=== PATIENT | female | born 1985 | race Hispanic/Latino ===

== ENCOUNTER 2016-12-16 05:58 | Emergency (ER) | payer OTHER ==
[2016-12-16] MEDS ORDERED: Dexamethasone 4 mg/ml Vial ONE ×2 (06:14→06:15)
== END 2016-12-16 06:30 | disposition home or self-care (01) ==
LOC: BURERS 05:58
DX: J02.9 Acute pharyngitis, unspecified (principal); F32.9 Major depressive disorder, single episode, unspecified; F17.210 Nicotine dependence, cigarettes, uncomplicated
CPT/HCPCS: 99283; J1100

== ENCOUNTER 2016-12-17 18:54 | Emergency (ER) | payer OTHER ==
[2016-12-17] MEDS ORDERED: Benzonatate 100 MG CAP ONE (19:16)
[2016-12-17] MEDS ORDERED: Azithromycin 250 MG TAB ONE (19:57)
--- NOTE | 2016-12-17 20:33 | RAD ---
CHEST TWO VIEWS 12/17/16 The films were taken in partial expiration. This causes some crowding of the basilar markings and th sera areas are not seen as well as otherwise. Nevertheless, three were no convincing findings of pneu monia. No pleural effusions were seen. The heart size is normal given body habitus and an expiratory phase of filming. The trachea is midline. IMPRESSION: No acute thoracic finding. POS: HOME
== END 2016-12-17 20:01 | disposition home or self-care (01) ==
LOC: BURERS 18:54
DX: J20.9 Acute bronchitis, unspecified (principal); F32.9 Major depressive disorder, single episode, unspecified; F17.210 Nicotine dependence, cigarettes, uncomplicated; D64.9 Anemia, unspecified
CPT/HCPCS: 71020; 87081; 87430; 99283

== ENCOUNTER 2017-03-11 07:50 | Emergency (ER) | payer OTHER ==
[2017-03-11] MEDS ORDERED: HYDROcodone/Acetaminophen 5/325 mg Tablet ONE (08:08)
== END 2017-03-11 08:22 | disposition home or self-care (01) ==
LOC: BURERS 07:50
DX: H66.92 Otitis media, unspecified, left ear (principal); J02.9 Acute pharyngitis, unspecified; F32.9 Major depressive disorder, single episode, unspecified; F17.210 Nicotine dependence, cigarettes, uncomplicated
CPT/HCPCS: 99282

== ENCOUNTER 2017-09-24 19:05 | Emergency (ER) | payer OTHER ==
[2017-09-24 20:09] LABS: ALT (SGPT) 27 U/L (8-55); AST (SGOT) 19 U/L (5-34); Albumin 4.1 g/dL (3.5-5.0); Alkaline Phosphatase 84 U/L (40-150); Anion Gap 13 mmol/L (10-20); BUN (Urea Nitrogen) 11 mg/dL (7.0-18.7); Bilirubin, Total Less than 0.2 mg/dL (0.2-1.2); Calc. Creatinine Clearance 0 mL/min (70-130); Calcium 9.1 mg/dL (7.8-10.44); Carbon Dioxide 22 mmol/L (22-29); Chloride 108 mmol/L (98-107); Estimated GFR-MDRD Greater than 90; Globulin 3.4 g/dL (2.4-3.5); Glucose 101 mg/dL (70-105); Potassium 3.8 mmol/L (3.5-5.1); Protein, Total 7.5 g/dL (6.0-8.3); Sodium 139 mmol/L (136-145)
[2017-09-24 20:13] LABS: #Basophils 0.1 thou/uL (0.0-0.2); #Eosinphils 0.3 thou/uL (0.0-0.7); #Lymphocytes 2.8 thou/uL (1.20-3.40); #Monocytes 0.7 thou/uL (0.11-0.59); #Neutrophils 8.7 thou/uL (1.40-6.50); %Basophils 0.6 % (0.0-1.0); %Eosinophils 2.7 % (0.0-10.0); %Lymphocytes 22.4 % (21.0-51.0); %Monocytes 5.8 % (0.0-10.0); %Neutrophils 68.6 % (42.0-75.0); Hemoglobin 10.8 g/dL (12.0-16.0); Hypochromia SLIGHT = 6-15 cells (100X) (0-5/hpf); Large Platelets SLIGHT; MDiff Complete? YES; Mean Corpuscular HGB CONC 31.7 g/dL (32.0-36.0); Mean Corpuscular Volume 75.9 fl (81.0-99.0); Mean Platelet Volume 6.5 fL (7.4-10.4); Microcytosis SLIGHT = 6-15 cells (100X) (0-5/hpf); Platelet Count 373 thou/uL (130-400); RBC Distribution Width 15.6 % (11.5-14.5); Red Blood Cell (RBC) Count 4.48 mill/uL (4.20-5.40); White Blood Cell (WBC) Count 12.7 thou/uL (4.8-10.8)
[2017-09-24] MEDS ORDERED: traMADol HCl 50 MG TAB ONE (20:47)
[2017-09-24] MEDS ORDERED: Ibuprofen 800 MG TAB ONE (20:47)
--- NOTE | 2017-09-25 07:02 | RAD ---
CHEST 2 VIEWS: Date: 09/24/17 Comparison is made with the 12/17/16 study. FINDINGS: The heart size is stable and is normal. There is no vascular congestion, edema, or pleural effusion. No lobar consolidation is seen. At most, there was a little streaking near the right cardiophrenic an gle, but much of this is due to vessels and overlapping soft tissues. I do not see a substantial infi ltrate here on the lateral view. IMPRESSION: No definite acute findings. POS: HOME
== END 2017-09-24 20:50 | disposition home or self-care (01) ==
LOC: BURERS 19:05
DX: D50.9 Iron deficiency anemia, unspecified (principal); F32.9 Major depressive disorder, single episode, unspecified; F17.210 Nicotine dependence, cigarettes, uncomplicated; Z79.899 Other long term (current) drug therapy
CPT/HCPCS: 71046; 80053; 85025; 85379

== ENCOUNTER 2018-06-17 18:18 | Emergency (ER) | payer MEDICARE ==
[2018-06-17 19:18] LABS: BHCG - Serum Negative (NEGATIVE); Pregs Control Background? CLEAR/WHITE (CLR/WHITE); Pregs Control Bar Appear? YES (CONTROL BAR)
[2018-06-17 19:27] LABS: #Basophils 0.1 thou/uL (0.0-0.2); #Eosinphils 0.2 thou/uL (0.0-0.7); #Lymphocytes 3.3 thou/uL (1.20-3.40); #Monocytes 0.5 thou/uL (0.11-0.59); #Neutrophils 6.8 thou/uL (1.40-6.50); %Basophils 0.8 % (0.0-1.0); %Lymphocytes 30.1 % (21.0-51.0); %Monocytes 4.8 % (0.0-10.0); %Neutrophils 62.3 % (42.0-75.0); Hemoglobin 11.3 g/dL (12.0-16.0); MDiff Complete? YES; Mean Corpuscular HGB CONC 32.1 g/dL (32.0-36.0); Mean Corpuscular Hemoglobin 24.7 pg (27.0-31.0); Mean Corpuscular Volume 76.9 fL (78.0-98.0); Microcytosis SLIGHT = 6-15 cells (100X) (0-5/hpf); Platelet Count 395 thou/uL (130-400); RBC Distribution Width 14.6 % (11.5-14.5); Red Blood Cell (RBC) Count 4.59 mill/uL (4.20-5.40); White Blood Cell (WBC) Count 10.9 thou/uL (4.8-10.8)
== END 2018-06-17 20:10 | disposition home or self-care (01) ==
LOC: BURERS 18:18
DX: N93.8 Other specified abnormal uterine and vaginal bleeding (principal); D64.9 Anemia, unspecified; F32.9 Major depressive disorder, single episode, unspecified; F17.210 Nicotine dependence, cigarettes, uncomplicated
CPT/HCPCS: 84703; 85025; 99284

== ENCOUNTER 2018-11-08 21:02 | Emergency (ER) | payer MEDICARE ==
[2018-11-08 22:25] LABS: BHCG - Serum Negative (NEGATIVE); Pregs Control Background? CLEAR/WHITE (CLR/WHITE); Pregs Control Bar Appear? YES (CONTROL BAR)
== END 2018-11-08 22:40 | disposition home or self-care (01) ==
LOC: BURERS 21:02
DX: N93.8 Other specified abnormal uterine and vaginal bleeding (principal); F32.9 Major depressive disorder, single episode, unspecified; D64.9 Anemia, unspecified; F17.210 Nicotine dependence, cigarettes, uncomplicated
CPT/HCPCS: 36415; 84702; 84703; 99284

== ENCOUNTER 2019-09-16 13:54 | Outpatient (CLI) | payer MEDICARE ==
--- NOTE | 2019-09-16 14:11 | RAD ---
XR Chest Pa Lat STANDARD HISTORY: Pneumonia due to infectious organism, unspecified COMPARISON: 09/24/2017 FINDINGS: The heart size is normal. The lungs are well expanded without focal areas of consolidation, pneumothorax or pleural effusions. IMPRESSION: No radiographic evidence of acute cardiopulmonary process.
[2019-09-16 21:13] LABS: #Eosinphils 0.1 thou/uL (0.0-0.7); #Lymphocytes 1.7 thou/uL (1.20-3.40); #Monocytes 0.9 thou/uL (0.11-0.59); #Neutrophils 3.8 thou/uL (1.40-6.50); %Basophils 0.1 % (0.0-1.0); %Eosinophils 1.1 % (0.0-10.0); %Lymphocytes 25.7 % (21.0-51.0); %Monocytes 14.6 % (0.0-10.0); %Neutrophils 58.5 % (42.0-75.0); Hemoglobin 12.6 g/dL (12.0-16.0); Mean Corpuscular HGB CONC 34.1 g/dL (32.0-36.0); Mean Corpuscular Hemoglobin 30.4 pg (27.0-31.0); Mean Corpuscular Volume 89.2 fL (78.0-98.0); Mean Platelet Volume 8.7 fL (7.4-10.4); Platelet Count 275 thou/uL (130-400); RBC Distribution Width 13.3 % (11.5-14.5); Red Blood Cell (RBC) Count 4.16 mill/uL (4.20-5.40); White Blood Cell (WBC) Count 6.5 thou/uL (4.8-10.8)
== END 2019-09-16 13:55 | disposition home or self-care (01) ==
LOC: BURRAD 13:54
PROVIDERS: ATTEND Physician Assistant
DX: J01.40 Acute pansinusitis, unspecified (principal)
CPT/HCPCS: 71046; 85025

== ENCOUNTER 2020-10-14 10:54 | Emergency (ER) | payer MEDICARE ==
[2020-10-14] MEDS ORDERED: diphenhydrAMINE 25 MG CAP ONE (11:32)
[2020-10-14] MEDS ORDERED: methylPREDNISolone Sod Succ/PF 125 MG/2 ML VIAL ONE (11:32)
== END 2020-10-14 11:45 | disposition home or self-care (01) ==
LOC: BURERS 10:54
DX: T78.1XXA Other adverse food reactions, not elsewhere classified, initial encounter (principal); R10.9 Unspecified abdominal pain; F17.210 Nicotine dependence, cigarettes, uncomplicated; D50.9 Iron deficiency anemia, unspecified
CPT/HCPCS: 96372; 99283; J2930; Q0163